=== PATIENT | female | born 1965 | race Caucasian/White ===

== ENCOUNTER 2018-04-09 23:54 | Emergency (ER) | payer OTHER ==
[~2018-04-09] VITALS: Ht 165.1 cm; Wt 72.6 kg
[~2018-04-09 23:54] MED LIST: AMITRIPTYLINE H10 M1 PO; CELEXA40 MG PO; CIPROFLOXACIN500 MG PO; HYDROCODONE BIT1 T11 PO; IBU800 M1 PO; NEURONTIN300 MG PO; NKHM; TRAMADOL HCL50 MG PO
== END 2018-04-10 08:23 | disposition home or self-care (01) ==
LOC: ED 23:54
DX: S50.02XA Contusion of left elbow, initial encounter (principal); S50.312A Abrasion of left elbow, initial encounter; Z79.899 Other long term (current) drug therapy; W19.XXXA Unspecified fall, initial encounter; Y93.89 Activity, other specified; Y92.098 Other place in other non-institutional residence as the place of occurrence of the external cause; Y99.8 Other external cause status

== ENCOUNTER 2021-09-06 08:43 | Emergency (ER) | payer OTHER ==
[~2021-09-06] VITALS: Ht 162.5 cm; Wt 69.9 kg
== END 2021-09-06 14:24 | disposition left against medical advice (07) ==
LOC: ED 08:43
DX: R41.82 Altered mental status, unspecified (principal); F15.10 Other stimulant abuse, uncomplicated; Z79.899 Other long term (current) drug therapy